=== PATIENT | female | born 1940 | race Caucasian/White ===

== ENCOUNTER 2017-11-27 02:55 | Emergency (ER) | payer MEDICARE, BC ==
[~2017-11-27] VITALS: Ht 160 cm; Wt 43.1 kg
[~2017-11-27 02:55] MED LIST: ALBU90OI; ALBU90OI6 INH; ALBU90OI61 INH; ALEN70 PO; ASPI81CH; ASPI81EC PO; AZIT250 PO; BUDE10.22 INH; CALCA500CH PO; CALCAVITDA PO; CLOT10 SUSW; CODACE30 PO; DIPH50 PO; FLUSAL2505; FLUT220OIA IH; HYDACE5 PO; HYDACE5325 PO; IBUP800 PO; IPRAOI INH; IRRISO; MAGCIT300 PO; META800 PO; MIRT15ST; MULVITMINF; MULVITMINF PO; NAPR500 PO; NICO21TP TOP; NYST100SU; OXYGEN; POTCHL20ER PO; PRED20 PO; PRED5 PO; Prednisone20 MG PO; Prinivil10 MG PO; RALO60; RALO60 PO; RISE35; RISE35 PO; SACC250C PO; SACC250C TOP; SALM50IP; SALMOI6.5 INH; SULTRIDS PO; SYMBICORT; TIOT18; TIOT18 IH; TOCO400 PO; VERA80 PO; WARF2.5 PO; Zofran4 MG PO; [UNRECOGNIZED DRUG - OTHER]
== END 2017-11-27 05:00 | disposition home or self-care (01) ==
LOC: ER 02:55
DX: M79.662 Pain in left lower leg (principal); J44.9 Chronic obstructive pulmonary disease, unspecified; I10 Essential (primary) hypertension; F17.210 Nicotine dependence, cigarettes, uncomplicated; Z88.2 Allergy status to sulfonamides; Z88.1 Allergy status to other antibiotic agents; Z79.899 Other long term (current) drug therapy; Z79.52 Long term (current) use of systemic steroids; Z98.51 Tubal ligation status; W01.0XXA Fall on same level from slipping, tripping and stumbling without subsequent striking against object, initial encounter
CPT/HCPCS: 70450; 73502; 93005; 93010; 99284